=== PATIENT | male | born 1970 | race African-American/Black ===

== ENCOUNTER 2020-02-15 10:50 | Emergency (ER) | payer SELFPAY ==
[2020-02-15 11:24] VITALS: BMI 25.8
--- NOTE | 2020-02-15 11:47 | PDOC ---
History of Present Illness - General Chief Complaint: Pain Stated Complaint: ABD. PAIN - History of Present Illness Initial Comments: Donald Liao is a 50yo man with a PMH of NIDDM, HTN who presents with several days of "nagging" abdominal discomfort. He states that he has had intermittent discomfort in the lower abdomen, about 3-4/10 in intensity, for the past few days. The pain does not radiate. It has mostly occurred in the evening after eating dinner, but he does not believe it is associated with eating. Mr Liao does endorse one episode of loose stool yesterday and one episode of NBNB vomiting after drinking a cup of wendy tea. Both have since resolved. He denies any urinary symptoms, flank pain, fever, upper abdominal pain, cough, SOB or other symptoms. He does endorse feeling "gassy" and slightly bloated over the past few days as well. He also reports that he ran out of his home lisinopril and metformin one month ago but has been unable to reach his regular doctor for a refill despite multiple phone calls. Past History - Medical History Allergies/Adverse Reactions: Allergies Allergy/AdvReac Type Severity Reaction Status Date / Time No Known Allergies Allergy Verified 02/15/20 11:07 Home Medications: Ambulatory Orders Lisinopril [Prinivil -] 40 mg PO DAILY #30 tablet 02/15/20 Metformin HCl [Glucophage] 500 mg PO TID 02/15/20 metFORMIN HCL [Metformin HCl] 500 mg PO Q12H 30 Days #60 tablet 02/15/20 - Psycho-Social/Smoking History Smoking History: Never smoked Information on smoking cessation initiated: No - Substance Abuse Hx (Audit-C & DAST Scrn) In the last yr the pt used illegal drug/Rx for NonMed reason: No Score: Yes response is considered Positive: 0 Screen Result (Positive result requires Nsg. DAST-10): Negative Review of Systems - Review of Systems Comments:: General: No fevers, no chills, no weight or appetite change, no malaise HEENT: No changes in vision, no changes in hearing, no congestion, no sore throat CV: No chest pain, no palpitations, no LE edema Pulm: No SOB, no cough, no wheezing GI: No nausea or vomiting, no change in bowel habits, no melena. See HPI : No frequency, no urgency, no dysuria Musc: No back pain, no joint swelling, no recent injury Skin: No rash, no lesions, no erythema Endo: No excessive thirst, no heat/cold intolerance Heme: No unusual bruising or bleeding, no swollen glands Neuro: No syncope, no numbness/tingling, no focal weakness Vasc: No claudication Psych: No recent change in mood, no SI or HI *Physical Exam - Vital Signs Last Vital Signs Temp Pulse Resp BP Pulse Ox 99.1 F 138 H 17 131/86 99 02/15/20 11:07 02/15/20 11:07 02/15/20 11:07 02/15/20 11:07 02/15/20 11:07 - Physical Exam General: Comfortable, no acute distress HEENT: Atraumatic, PERRL, EOMI, MMM, voice normal, normal neck ROM Cards: RRR, no murmur appreciated Pulm: Comfortable on room air, clear to auscultation bilaterally Abd: Soft, nontender, nondistended. Well-healed midline vertical abd incision, well-healed RUQ laparoscopic incisions. : No CVA tenderness Ext: Atraumatic. No LE edema. ROM intact. WWP Skin: Normal color, no rashes or lesions Neuro: A&Ox3, CN grossly intact, normal speech, motor/sensory grossly intact and symmetric Psych: Mood appropriate to situation ED Treatment Course - LABORATORY CBC & Chemistry Diagram: 02/15/20 11:40 02/15/20 11:40 - ADDITIONAL ORDERS Additional order review: Laboratory Results 02/15/20 11:29 POC Glucometer 259 02/15/20 11:29 POC Glucometer 259 Medical Decision Making - Medical Decision Making 02/15/20 11:47 Donald Liao is a 50yo man with a PMH of NIDDM, HTN who presents with several days of intermittent mild abdominal discomfort as well as bloating; he reports one episode of diarrhea and NBNB vomiting yesterday. - Benign abdominal exam. No tenderness, constipation/obstipation, vomiting, diarrhea, or PO intolerance concerning for significant intra-abdominal infection or obstruction. No urinary symptoms or suprapubic tenderness concerning for UTI. No flank pain indicating possible stone. Less likely HHS given no h/o associated symptoms, but will check glucose fingerstick - HR 138 in triage, decreased to 102 during exam. Possible mild dehydration - CBC, CMP, UA, UCx, EKG - IVF 02/15/20 13:15 - Labs without concerning abnormalities - UA negative, culture sent - EKG w/ NSR, HR 88, normal axis, normal intervals, no t-wave or ST changes - Will reassess and likely d/c home with med refills Discussed with Dr Janay Cisse PGY3 Discharge - Discharge Information Problems reviewed: Yes Clinical Impression/Diagnosis: Intermittent lower abdominal pain Condition: Stable Disposition: HOME - Admission No - Additional Discharge Information Prescriptions: metFORMIN HCL [Metformin HCl] 500 mg PO Q12H 30 Days #60 tablet Lisinopril [Prinivil -] 40 mg PO DAILY #30 tablet - Follow up/Referral Referrals: ON STAFF,NOT [Primary Care Provider] - [facility] [place] [facility] [place] [Provider Group] - Patient Discharge Instructions Patient Printed Discharge Instructions: DI for Abdominal Pain-Adult Additional Instructions: Discharge Instructions: You were seen in the emergency department for [facility] and Follow Up: - Make sure you are drinking plenty of fluids while you are sick. Increase your normal fluid intake. It is OK if you do not feel like eating as long as you are staying well hydrated - You may use medications such as acetaminophen (Tylenol) 650-1000mg or ibuprofen (Advil, Motrin) 400-600mg every 6 hours as needed for pain or fever over 101F - Consider placing a humidifier in your room overnight to help relieve congestion and reduce drying of your nose and mouth. - Use throat lozenges (cough drops) for sore throat or cough - If you use additional cold medications, make sure they do not contain medicines you are already taking such as acetaminophen or ibuprofen - You should feel better within a week, though cough can sometimes last longer. If you are not feeling better in a week, follow up with your primary doctor. If you need to see a new doctor, you have been referred to the [facility] [place]. - Seek immediate care if you have worsening symptoms, difficulty breathing, you are unable to stay hydrated, you are unable to eat, you stop having bowel movements or gas at all, you develop high fevers over 104F that do not come down with medication, or you have any other medical emergency. - Post Discharge Activity
[2020-02-15] MEDS ORDERED: LACTATED RINGERS SOLUTION 1000 ML INFUS.BAG IV ONE (11:48)
[2020-02-15] MEDS ORDERED: ACETAMINOPHEN 1000 MG/100 ML VIAL (NON FORMULARY) IVPB ONE (11:48)
--- NOTE | 2020-02-15 11:48 | PDOC ---
Attending Attestation - Resident Resident Name: TannaMelissa - ED Attending Attestation I have performed the following: I have examined & evaluated the patient, The case was reviewed & discussed with the resident, I agree w/resident's findings & plan, Exceptions are as noted - HPI HPI: 02/15/20 11:43 50YOM with NIDDM (on metformin), HTN, HLD, distant appendectomy, and cholecystectomy who p/w 1 week of nagging 4/10 lower mid-abdominal pain, as well as one episode of NBNB vomiting. He denies any change in appetite, diarrhea, constipation (last BM normal yesterday), current nausea, fever, chills, dysuria, hematuria, testicular pain/swelling, or other symptoms. He notes having been trying to call his PCP for refills of his medications, but has not been able to get them refilled, and thus has not taken his medications lisinopril or met formin for the past month. - Physicial Exam PE: 02/15/20 11:47 GENERAL: well-appearing, A/Ox4, no distress, answers questions appropriately HEENT: PERRLA, EOMI, moist mucous membranes NECK/BACK: no midline ttp, no spinal step-off or deformity, no hematoma, full ROM, neck supple CARDIOVASCULAR: regular rate/rhythm, no MGR, strong peripheral pulses, capillary refill <2 seconds, extremities wwp, no edema LUNGS/RESPIRATORY: no respiratory distress, CTAB GI/ABDOMEN: symmetric vsye-mi-dwse, normoactive BS, soft, no ttp, no midline pulsatile masses : no CVA tenderness MSK/EXTREMITIES: no muscle atrophy, no acute deformity SKIN: warm and dry, no pallor, no jaundice, no rash, no pathologic-appearing bruising, no skin breakdown, no cuts, no lesions NEUROLOGICAL: GCS 15, CN II-XII grossly intact, 5/5 strength proximally and distally, no facial droop - Medical Decision Making 02/15/20 11:47 50YOM p/w suprapubic abdominal pain, 1 episode vomiting yesterday. Initial Vital Signs Temp Pulse Resp BP Pulse Ox 99.1 F 138 H 17 131/86 99 02/15/20 11:07 02/15/20 11:02/15/20 11:02/15/20 11:02/15/20 11:07 DDX IBNLT: most likely constipation or cystitis, possible musculoskeletal pain. There is no e/o incarcerated/strangulated hernia, testicular torsion, testicular appendage torsion, epididymitis, orchitis, urethritis, cellulitis, or abscess. Unlikely any of the following d/t benign nature of exam: appendicitis, diverticulitis, colitis, SBO, malignancy, etc. Considered referred pain (i.e. renal colic but the patient has no CVA tenderness and no h/o renal stones. W/U ordered: Labs as noted below, EKG TX ordered: IVF, Ofirmev Laboratory Tests 02/15/20 02/15/20 02/15/20 11:10 11:29 11:40 WBC 5.6 RBC 5.33 Hgb 15.8 Hct 47.4 MCV 88.9 MCH 29.7 MCHC 33.5 RDW 13.1 Plt Count 155 MPV 12.0 H Absolute Neuts (auto) 3.4 Neutrophils % 60.6 Lymphocytes % 29.2 Monocytes % 9.0 Eosinophils % 0.9 Basophils % 0.3 Nucleated RBC % 0 Sodium Potassium Chloride Carbon Dioxide Anion Gap BUN Creatinine Est GFR (CKD-EPI)AfAm Est GFR (CKD-EPI)NonAf POC Glucometer 259 Random Glucose Calcium Total Bilirubin AST ALT Alkaline Phosphatase Total Protein Albumin Urine Color Yellow Urine Appearance Clear Urine pH 5.0 Ur Specific [place] 1.030 Urine Protein Trace Urine Glucose (UA) 3+ H Urine Ketones 2+ H Urine Blood Negative Urine Nitrite Negative Urine Bilirubin Negative Urine Urobilinogen 0.2 Ur Leukocyte Esterase Negative 02/15/20 11:40 WBC RBC Hgb Hct MCV MCH MCHC RDW Plt Count MPV Absolute Neuts (auto) Neutrophils % Lymphocytes % Monocytes % Eosinophils % Basophils % Nucleated RBC % Sodium 133 L Potassium 4.5 Chloride 97 L Carbon Dioxide 26 Anion Gap 10 BUN 18.6 H Creatinine 1.3 Est GFR (CKD-EPI)AfAm 73.22 Est GFR (CKD-EPI)NonAf 63.18 POC Glucometer Random Glucose 257 H Calcium 10.0 Total Bilirubin 1.0 AST 22 ALT 35 Alkaline Phosphatase 91 Total Protein 8.4 H Albumin 4.1 Urine Color Urine Appearance Urine pH Ur Specific [place] Urine Protein Urine Glucose (UA) Urine Ketones Urine Blood Urine Nitrite Urine Bilirubin Urine Urobilinogen Ur Leukocyte Esterase This Pt has gotten significant relief of symptoms while in the ED. On last reassessment, vitals are wnl, pain is reasonably controlled, and exam is benign. Workup is not concerning for emergency-level pathology at this time. This Pt is appropriate for discharge with close outpatient follow up. States one reason he came in is that he wants his metformin Rx renewed as he has not been able to get in touch with his PCP. They are comfortable with this plan and will follow up with PCP in 1-3 days. Specific return precautions are discussed and they will come back to the ER if necessary. Discharge procedures carried out by resident physician. Last Vital Signs Temp Pulse Resp BP Pulse Ox 98.5 F 96 H 19 126/76 99 02/15/20 13:57 02/15/20 13:57 02/15/20 13:57 02/15/20 13:57 02/15/20 13:57 Heart Score/ECG Review #1 02/15/20 11:19 Sinus rhythm, rate 88, normal axis and intervals, no ischemic ST-T changes Discharge - Discharge Information Problems reviewed: Yes Clinical Impression/Diagnosis: Intermittent lower abdominal pain Condition: Stable Disposition: HOME - Admission No - Additional Discharge Information Prescriptions: metFORMIN HCL [Metformin HCl] 500 mg PO Q12H 30 Days #60 tablet Lisinopril [Prinivil -] 40 mg PO DAILY #30 tablet - Follow up/Referral Referrals: [facility] [place] [facility] [place] [Provider Group] ON STAFF,NOT [Primary Care Provider] - - Patient Discharge Instructions Patient Printed Discharge Instructions: DI for Abdominal Pain-Adult Additional Instructions: Discharge Instructions: You were seen in the emergency department for [facility] and Follow Up: - Make sure you are drinking plenty of fluids while you are sick. Increase your normal fluid intake. It is OK if you do not feel like eating as long as you are staying well hydrated - You may use medications such as acetaminophen (Tylenol) 650-1000mg or ibuprofen (Advil, Motrin) 400-600mg every 6 hours as needed for pain or fever over 101F - Consider placing a humidifier in your room overnight to help relieve congestion and reduce drying of your nose and mouth. - Use throat lozenges (cough drops) for sore throat or cough - If you use additional cold medications, make sure they do not contain medicines you are already taking such as acetaminophen or ibuprofen - You should feel better within a week, though cough can sometimes last longer. If you are not feeling better in a week, follow up with your primary doctor. If you need to see a new doctor, you have been referred to the [facility] [place]. - Seek immediate care if you have worsening symptoms, difficulty breathing, you are unable to stay hydrated, you are unable to eat, you stop having bowel movements or gas at all, you develop high fevers over 104F that do not come down with medication, or you have any other medical emergency. - Post Discharge Activity
[2020-02-15] MEDS ORDERED: ACETAMINOPHEN INJECTION 100 ML IVPB ONE (12:00)
[2020-02-15 12:42] LABS: BASO % 0.3 % (0-2.0); EOS % 0.9 % (0-4.5); HEMATOCRIT 47.4 % (35.4-49); HEMOGLOBIN 15.8 GM/dL (11.7-16.9); LYMPH % 29.2 % (8-40); MCH 29.7 pg (25.7-33.7); MCHC 33.5 g/dl (32.0-35.9); MEAN CELL VOLUME 88.9 fl (80-96); NEUT % 60.6 % (42.8-82.8); RBC 5.33 M/mm3 (4.00-5.60); RDW 13.1 % (11.9-15.9); WHITE BLOOD COUNT 5.6 K/mm3 (4.0-10.0)
[2020-02-15 12:55] LABS: URINE APPEARANCE CLEAR; URINE BILIRUBIN NEGATIVE (NEGATIVE); URINE COLOR YELLOW; URINE GLUCOSE (UA) 3+ (NEGATIVE); URINE KETONE 2+ (NEGATIVE); URINE LEUK ESTERASE NEGATIVE (NEGATIVE); URINE NITRITE NEGATIVE (NEGATIVE); URINE PROTEIN TRACE (NEGATIVE); URINE UROBILINOGEN 0.2 mg/dL (0.2-1.0)
[2020-02-15 13:06] LABS: PLATELET COUNT 155 K/MM3 (134-434)
[2020-02-15 13:18] LABS: ALBUMIN 4.1 g/dl (3.4-5.0); BLOOD UREA NITROGEN 18.6 mg/dL (7-18); CREATININE 1.3 mg/dL (0.55-1.3); POTASSIUM 4.5 mmol/L (3.5-5.1); TOT PROT 8.4 g/dl (6.4-8.2)
[2020-02-15 13:58] VITALS: BP 126/76; PULSE 96; TEMP 98.5
--- NOTE | 2020-02-16 15:30 | EKG ---
Test Reason : Blood Pressure : / mmHG Vent. Rate : 088 BPM Atrial Rate : 088 BPM P-R Int : 146 ms QRS Dur : 078 ms QT Int : 352 ms P-R-T Axes : 069 020 045 degrees QTc Int : 425 ms NORMAL SINUS RHYTHM POSSIBLE LEFT ATRIAL ENLARGEMENT NO PREVIOUS ECGS AVAILABLE Confirmed by SHE MACKENZIE MD ([id number]) on 02/16/2020 3:30:19 PM Referred By: Confirmed By:SHE MACKENZIE MD
== END 2020-02-15 13:59 | disposition home or self-care (01) ==
LOC: JER 10:50
PROC: 3E033NZ Introduction of Analgesics, Hypnotics, Sedatives into Peripheral Vein, Percutaneous Approach (ICD-10-PCS; principal; 2020-02-15)
DX: R10.30 Lower abdominal pain, unspecified (principal)
CPT/HCPCS: 36415; 80053; 81003; 82962; 85025; 87086; 93005; 93010; 99285-25; J0131